=== PATIENT | female | born 1960 | race Caucasian/White ===

== ENCOUNTER 2018-02-08 17:00 | Observation (INO) | END 2018-02-09 13:41 | disposition home or self-care (01) ==

== ENCOUNTER 2018-11-01 15:26 | Emergency (ER) | payer MEDICAID ==
[~2018-11-01] VITALS: Ht 162.6 cm; Wt 62.3 kg
[~2018-11-01 15:26] MED LIST: AMLO5TAB4 PO; ATOR10TA65 PO; GABA300C16 PO; GLIM4TAB PO; METF100010 PO
[2018-11-01 15:30] VITALS: BP 178/76; PULSE 79; RESP 18; Ht 162.6 cm; Wt 62.3 kg
[2018-11-01] MEDS ORDERED: POLY15DR13 OP (16:47)
--- NOTE | 2018-11-01 16:50 | ERD ---
ER Documentation Chief Complaint Chief Complaint rt eye redness x 1 day HPI 58-year-old female presents with some redness of the right eye starting today. She may have been coughing. She has no new visual changes. She states that her vision is poor due to her blood pressure diabetes. Denies any history of trauma . ROS All systems reviewed and are negative except as per history of present illness. Medications Home Meds Active Scripts Polyvinyl Alcohol/Povidone (Artificial Tears Drops) 15 Ml Drops, 15 ML OP QID for 10 Days, BOTTLE 1 drop 2 to 4 hours right eye for 2 weeks. Prov:MANASA CASTRO MD 11/01/18 Atorvastatin (Atorvastatin) 10 Mg Tablet, 10 MG PO HS, #30 TAB 2 Refills Prov:GUERA WOOD 02/09/18 Reported Medications Gabapentin* (Gabapentin*) 300 Mg Capsule, 300 MG PO BID, #60 CAP 02/08/18 Amlodipine Besylate* (Norvasc*) 5 Mg Tablet, 5 MG PO DAILY, TAB 02/08/18 Metformin Hcl* (Metformin Hcl*) 1,000 Mg Tablet, 1000 MG PO WITH BREAKFAST DINNE, #60 TAB 02/08/18 Glimepiride* (Glimepiride*) 4 Mg Tablet, 4 MG PO WITH BREAKFAST, TAB 02/08/18 Allergies Allergies: Uncoded Allergies: NONE (Allergy, Unknown, 02/08/18) PMhx/Soc History of Surgery: Yes (ceasarian) Anesthesia Reaction: No Hx Neurological Disorder: No Hx Respiratory Disorders: No Hx Cardiac Disorders: Yes (HTN) Hx Psychiatric Problems: No Hx Miscellaneous Medical Probl: No Hx Alcohol Use: No Hx Substance Use: No Hx Tobacco Use: No Smoking Status: Never smoker FmHx Family History: No diabetes, No coronary disease, No other Physical Exam Vitals Vital Signs Date Temp Pulse Resp B/P (MAP) Pulse Ox O2 O2 Flow FiO2 Time Delivery Rate 11/01/18 98.1 79 18 178/76 98 15:30 (110) Physical Exam Const: No acute distress Head: Atraumatic Eyes: Right eye subconjunctival hemorrhage extending from approximately 3:00 to 7:00. Eyes Nay and extraocular movements intact. Anterior chambers are grossly normal. Corrected visual acuity diminished equally bilaterally and actually left eyes greater than right eye but vision is poor bilaterally approximately 5 /200. ENT: Normal External Ears, Nose and Mouth. Neck: Full range of motion. No meningismus. Resp: Clear to auscultation bilaterally Cardio: Regular rate and rhythm, no murmurs Abd: Soft, non tender, non distended. Normal bowel sounds Skin: No petechiae or rashes Back: No midline or flank tenderness Ext: No cyanosis, or edema Neur: Awake and alert Psych: Normal Mood and Affect Procedures/MDM Patient presents with signs and symptoms of right eye subconjunctival hemorrhage. No signs of acute visual loss or visual field deficit but patient does have overall poor baseline vision. She will be discharged home with recommendations for artificial tears, primary care follow-up and return precautions. Patient has no other returning signs or symptoms of emergent condition. The patient's blood pressure was elevated (>120/80) but appears stable without evidence of hypertension emergency or urgency. The patient was counseled about the risks of hypertension and urged to pursue outpatient monitoring and therapy within a week with their primary care physician. I discussed the findings with the patient. I advised the patient to follow-up with the primary physician in about 1-2 days, sooner if needed and return if any concern. The patient was stable with no new complaints during the ER course. Clinically, there is no current evidence to suggest meningitis, sepsis, acute abdomen, pneumonia, stroke, acute coronary syndrome, pulmonary embolism, aortic dissection or any other emergent condition appearing to require further evaluation or hospitalization. Patient counseled regarding my diagnostic impression and care plan. Prior to discharge all questions answered. Pt agrees with treatment plan and understands strict return precautions. Pt is instructed to follow up with primary care provider within 24-48 hours. Precautionary instructions provided including instructions to return to the ER if not improving or for any worsening or changing symptoms or concerns. Disclaimer: Inadvertent spelling and grammatical errors are likely due to EHR/dictation software use and do not reflect on the overall quality of patient care. Also, please note that the electronic time recorded on this note does not necessarily reflect the actual time of the patient encounter. Departure Diagnosis: Primary Impression: Subconjunctival hemorrhage of right eye Condition: Stable Patient Instructions: Hypertension, Established, Subconjunctival Hemorrhage Referrals: [facility] Hours: Mon - Fri 9:00 AM - 5:00 PM Additional Instructions: es un vena cabrada . Va al maher doctor/ specialista para mas evaluacon en el proximo semana. posiblemente necesita autorizado de maher doctor primario para specialista. Regresa para fiebre, o mas o nueva simptomas. MANASA CASTRO MD Nov 01, 2018 16:50
== END 2018-11-01 17:04 | disposition home or self-care (01) ==
LOC: FTE 15:26
DX: H11.31 Conjunctival hemorrhage, right eye (principal); I10 Essential (primary) hypertension; Z79.84 Long term (current) use of oral hypoglycemic drugs
CPT/HCPCS: 99282